=== PATIENT | male | born 1995 | race Caucasian/White ===

== ENCOUNTER 2025-10-29 14:22 | Emergency (ER) | payer OTHER, SELFPAY ==
[2025-10-29 14:36] VITALS: BP 129/70; PULSE 77; RESP 16; TEMP 36.6; O2SAT 98
--- NOTE | 2025-10-29 14:42 | ED_ITS ---
HPI - Wound/Laceration General Chief Complaint: Wound/Laceration Stated Complaint: finger laceration Time Seen by Provider: 10/29/25 14:40 Source: patient Mode of arrival: ambulatory Limitations: no limitations History of Present Illness HPI narrative: Hafsa is a presenting to the clinic today with complaints of right index finger laceration. He reports he cut it when he was sharpening a knife approximately 45 minutes ago. He went to another local urgent care and a declined treatment. Bleeding is controlled. Tetanus is unknown Related Data Home Medications ?Medication ?Instructions ?Recorded ?Confirmed ?Last Taken ?Type benzonatate 200 mg capsule mg PO 10/29/25 Unknown His tory cefuroxime axetil 500 mg tablet mg 10/29/25 Unknown H istory escitalopram oxalate 10 mg tablet mg 10/29/25 Unknown History mesalamine 1.2 gram tablet,delayed g PO 10/29/25 Unkn own History release Allergies Allergy/AdvReac Type Severity Reaction Status Date / Time No Known Allergies Allergy Mild Verified 10/29/25 14:35 Review of Systems Review of Systems: Pertinent positives per HPI. Patient denies any fever, chills, rash, headache, visual changes, dizziness, cough, runny nose, sore throat, shortness of breath, chest pain, palpitations, nausea, vomiting, diarrhea, constipation, abdominal pain, or any urinary issues. PMFSH Comments At the time of my signature, I reviewed and agree with the nursing past medical, surgical, social, and family history. There is no relevant family history pertinent to the patient complaint. Exam Narrative: General: Well-developed, well nourished, in no apparent distress Head: Normocephalic, atraumatic. Cardio: Regular rate and rhythm, s1 and s2 normal, no murmur appreciated. Resp: Clear to auscultation bilaterally, no rhonchi, rales, wheezing or rubs. Integumentary: [place], warm, and dry, 1.5 cm laceration to the right aspect of the proximal index finger over the MCP joint Course Course Level of Care: Express Care Visit Vital Signs Vital signs: Vital Signs Temperature 36.6 C 10/29/25 14:36 Pulse Rate 77 10/29/25 14:36 Respiratory Rate 16 10/29/25 14:36 Blood Pressure 129/70 10/29/25 14:36 Pulse Oximetry 98 10/29/25 14:36 Temperature 36.6 C 10/29/25 14:36 Pulse Rate 77 10/29/25 14:36 Respiratory Rate 16 10/29/25 14:36 Blood Pressure 129/70 10/29/25 14:36 Pulse Oximetry 98 10/29/25 14:36 Procedures Laceration Laceration 1: Date: 10/29/25 Site: hand (Right index finger) Side (If applicable): right Size (cm): 1.5 Description: linear and clean Depth: simple, single layer Local Anesthetic: lidocaine 1% Amount of anesthesia used (mL): 1 Pre-repair: wound explored and irrigated ====== Skin Level ====== Skin layer closed with: nylon Size (cm): 5-0 Number of sutures: 5 Technique: simple, interrupted ====== Subcutaneous Layer ====== ====== Muscle Layer ====== ====== Tendon Layer ====== Dressing: Verbal consent obtained for laceration repair. Risk and benefits explained and patient voiced understanding. Area was cleansed with antiseptic wound wash and a 27 gauge needle was then used to instill (1) ml of 1% lidocaine without epi into the wound edges. Area was prepped and draped using sterile technique. A 5-0 suture on a p needle was used to place (5) interrupted sutures bringing the wound edges together- well approximated. Patient tolerated procedure well. Sterile dressing applied. MDM MDM Narrative Medical decision making narrative: At the time of visit patient is resting comfortably on the exam table. Patient appears to be nontoxic. Complaints of right index finger laceration. He reports he cut it when he was sharpening a knife approximately 45 minutes ago. He went to another local urgent care and a declined treatment. Bleeding is controlled. Tetanus is unknown. On exam patient has a 1.5 cm laceration to the right aspect of the proximal index finger over the MCP joint. Procedure: Laceration repair was performed in the clinic today to sutures were placed in the wound edges bringing the wound edges well approximate. Patient tolerated well. Medications: Tdap 0.5 mL IM ordered Plan: Patient has a 1.5 cm laceration to the right index finger over the MCP joint. Laceration repair was performed in the clinic today. Metal finger splint was applied. Sutures out 10 days. Supportive measures were discussed with the patient and they voiced understanding discharge instructions and agrees to treatment plan. Return precautions reviewed Differential Diagnosis Differential Diagnosis: Differential diagnostic considerations for upper respiratory infection include upper respiratory infection, croup, otitis media, sinusitis, viral infection, bronchitis, influenza, pharyngitis, strep, uvulitis. Discharge Plan Discharge Clinical Impression: Finger laceration Qualifiers: Encounter type: initial encounter Finger: index finger Damage to nail status: without damage Foreign body presence: without foreign body Laterality: right Qualified Code(s): S61.210A - Laceration without foreign body of right index finger without damage to nail, initial encounter Patient Disposition: Home Condition: Stable Instructions: Antibiotic Form, Finger Laceration (ED) Additional Instructions: Tdap was given in the clinic today. Leave bandage on for 24 hours then may remove and apply band aide covering as needed. Take Keflex as prescribed Keep wound clean and dry Skin sutures out in 7 days. If head laceration- glenny out in 5 days. Watch for signs and symptoms of infection- redness, streaking, swelling, purulent discharge, or increase in pain. Follow up with your PCP for suture removal or return to the Express care. Patient Language: Portuguese Prescriptions: New cephalexin 500 mg capsule 500 mg PO Q12H 7 Days Qty: 14 0RF No Action benzonatate 200 mg capsule PO cefuroxime axetil 500 mg tablet escitalopram oxalate 10 mg tablet mesalamine 1.2 gram tablet,delayed release (/EC) PO Follow-up/Referrals: Marcelina,Esther Orta APRN [Primary Care Provider, Unknown] Time of Disposition: 15:03 Quality NIHSS Nursing Documentation ED NIHSS nursing documentation: reviewed/agree
[2025-10-29] MEDS: LIDOCAINE 1% LOCAL INJ 2 ML AMPUL INFILTRATE (14:52)
[2025-10-29] MEDS: TETANUS,DIPHTHERIA,AC PERTUSSIS ADULT (0.5 ML) BOOSTRIX IM (15:27)
== END 2025-10-29 15:35 | disposition home or self-care (01) ==
PROVIDERS: Emergency Provider Nurse Practitioner Family; PCP Nurse Practitioner
DX: S61.210A Laceration without foreign body of right index finger without damage to nail, initial encounter (principal); W26.0XXA Contact with knife, initial encounter; Z23 Encounter for immunization
CPT/HCPCS: 12001; 90471; 90715; 99213; G0463; J2003